=== PATIENT | male | born 1950 | race Caucasian/White ===

== ENCOUNTER 2020-02-09 05:16 | Inpatient (IN) | payer MEDICARE ==
[2020-02-02 14:55] LABS: ABG BASE EXCESS 0.7 mmol/L (-2.0-3.0); ABG HCO3 24.7 mmol/L (22.0-26.0); ABG OXYGEN SATURATION 96.3 % (95-98); ABG PO2 (T) 82.1 mmHg (83-108); ALLEN'S TEST POSITIVE; FCOHb 2.3 % (0.5-1.5); FMetHb 0.3 % (0.3-1.12); FO2Hb 93.8 % (94-100); TOTAL HEMOGLOBIN 15.3 G/dl (14.0-17.9)
[2020-02-02 15:22] LABS: BASOPHILS # (AUTO) 0.1 X10'3 (0-0.2); BASOPHILS % (AUTO) 0.8 % (0-1); EOSINOPHILS # (AUTO) 0.4 X10'3 (0-0.9); EOSINOPHILS % (AUTO) 4.3 % (0-6); LYMPHOCYTES # (AUTO) 2.4 X10'3 (1.1-4.8); LYMPHOCYTES % (AUTO) 28.7 % (21-51); MEAN CORPUSCULAR HEMOGLOBIN 28.2 PG (27.0-31.0); MEAN CORPUSCULAR VOLUME 85.4 FL (78-98); MEAN PLATELET VOLUME 6.7 FL (7.4-10.4); MONOCYTES # (AUTO) 0.6 X10'3 (0-0.9); MONOCYTES % (AUTO) 6.7 % (2-12); NEUTROPHILS # (AUTO) 4.9 X10'3 (1.8-7.7); NEUTROPHILS % (AUTO) 59.5 % (42-75); PRE OP HEMATOCRIT 45.5 % (42.0-52.0); PRE OP PLATELET COUNT 258 X10'3 (140-440); RED BLOOD COUNT 5.33 X10'6 (4.70-6.10); RED CELL DISTRIBUTION WIDTH 15.2 % (11.5-14.5)
[2020-02-02 15:35] LABS: PRE OP PROTIME 9.9 SECONDS (9.0-12.0)
[2020-02-02 15:37] LABS: ALBUMIN/GLOBULIN RATIO 1.1 (1.1-1.5); ALKALINE PHOSPHATASE 60 IU/L (46-116); BLOOD UREA NITROGEN 14 MG/DL (7-18); BUN/CREATININE RATIO 15.2 (5.4-32.0); CALCIUM 9.3 MG/DL (8.5-10.1); CHLORIDE 104 MMOL/L (99-107); CREATININE 0.92 MG/DL (0.60-1.10); PRE OP ALT 20 U/L (30-65); PRE OP ANION GAP 7 (8-16); PRE OP AST 18 U/L (10-37); PRE OP BILIRUB, TOTAL 0.9 MG/DL (0.0-1.0); PRE OP GLUCOSE 91 MG/DL (70-104); PRE OP POTASSIUM 3.8 MMOL/L (3.4-5.1); PRE OP SODIUM 141 MMOL/L (135-145); TOTAL CARBON DIOXIDE 29.8 MMOL/L (24-32); TOTAL PROTEIN 7.6 G/DL (6.4-8.2); eGFR 82 ML/MIN
[2020-02-02 15:38] LABS: HEMOGLOBIN A1C 5.9 % (4.5-6.2)
[2020-02-02 16:13] LABS: CLARITY,URINE CLEAR (Clear); COLOR,URINE YELLOW (Yellow); GLUCOSE, URINE NEGATIVE (Neg); KETONES,URINE NEGATIVE (Neg); LEUKOCYTE ESTERASE ,URINE NEGATIVE (Neg); NITRITES, URINE NEGATIVE (Neg); OCCULT BLOOD,URINE NEGATIVE (Neg); PROTEIN,URINE NEGATIVE (Neg)
[2020-02-02 16:23] LABS: UA COLLECTION TYPE CLN CATCH MIDSTREAM
[~2020-02-09] VITALS: Ht 172.7 cm; Wt 99.9 kg
[2020-02-09] VITALS (20 sets, daily range): BP systolic 67–128; BP diastolic 39–88
[~2020-02-09 05:16] MED LIST: ASPI-611 PO; FLO0.4C PO; Insulin Reg/NS 100units/100mL 100 ML IV SCH; LISI-604 PO; MESSAGE TO PHARMACY PO ONE; albuterol 2.5 MG/3 ML nebule NEB PRN; ceFAZolin 1000mg inj ONE; dextrose 50%-water 50ml dispensing syringe IV PRN; dextrose ORAL solution 15 GM/59 ML bottle PO PRN; glucagon, human recombinant 1mg kit SUBCUT PRN; insulin Lispro (HumaLOG) vial - multi-dose SQ SCH; insulin glargine (Lantus) pen - multi-dose SQ SCH; ringers solution, lacted 1,000 ML IV SCH
[2020-02-09] MEDS ORDERED: cefazolin/dext.iso 2gm/50ml 50 ML IV ONE (05:30)
[2020-02-09] MEDS ORDERED: famotidine 20mg tablet PO ONE (05:30)
[2020-02-09] MEDS ORDERED: LORazepam 2 mg/ml vial IV ONE (05:30)
[2020-02-09] MEDS ORDERED: metoprolol tartrate 12.5mg (1/2 tablet) PO ONE (05:30)
[2020-02-09] MEDS ORDERED: mupirocin 2% nasal ointment 1gm UD NS ONE (05:30)
[2020-02-09] MEDS ORDERED: vancomycin 1,500 MG in NS 500ml IV soln IV ONE (05:30)
[2020-02-09] MEDS ORDERED: gabapentin 400mg capsule PO ONE (05:30)
[2020-02-09] MEDS ORDERED: LIDOcaine 1% (10mg/ml) 2ml vial ONE ×2 (05:44→05:49)
[2020-02-09] MEDS ORDERED: heparin 10,000 units/1 ML INJ ONE (06:00)
[2020-02-09] MEDS ORDERED: methylPREDNISolone sod. succ. 500mg inj ONE (06:00)
[2020-02-09] MEDS ORDERED: magnesium sulf 1 GM/2 ML ONE (06:00)
[2020-02-09] MEDS ORDERED: sodium bicarbonate (8.4%) 1 mEq/ml syringe ONE ×2 (06:00→16:25)
[2020-02-09] MEDS ORDERED: calcium chloride 100 MG/1 ML inj IV ONE ×2 (06:00→17:21)
[2020-02-09] MEDS ORDERED: albumin (human) 25% 100 ML IV solution IV ONE (06:00)
[2020-02-09] MEDS ORDERED: potassium Cl 2 mEq/ml inj IV ONE (06:00)
[2020-02-09] MEDS ORDERED: neostigmine methylsulfate 1 MG/ML 10ml vial ONE (06:00)
[2020-02-09] MEDS ORDERED: LIDOcaine 2% (20 mg/ml) 5ml cardiac syringe ONE (06:00)
[2020-02-09] MEDS ORDERED: aminocaproic acid 250 MG/1 ML inj. ONE ×2 (06:00→09:32)
[2020-02-09] MEDS ORDERED: heparin 1,000 units/ml 10ml inj ONE (06:00)
[2020-02-09] MEDS: insulin Lispro (HumaLOG) vial - multi-dose SQ SCH ×3 (07:00→12:32)
[2020-02-09] MEDS ORDERED: NORepinephrine 8 MG in NS 250 ML BAG (32 mcg/ml) IV ONE ×2 (09:32→16:25)
[2020-02-09] MEDS ORDERED: protamine sulf. 10mg/ml inj. IV ONE (09:32)
[2020-02-09] MEDS ORDERED: isoflurane 100ml inhalation liquid IH ONE ×2 (09:32→16:25)
[2020-02-09] MEDS ORDERED: nitroGLYCERIN in D5W 50mg/250ml (Tridil) infusion IV ONE (09:32)
[2020-02-09] MEDS ORDERED: SUFENTANIL CITRATE 50 MCG/ML 2ml ampule IV ONE (09:43)
[2020-02-09] MEDS ORDERED: LORazepam 2 mg/ml vial ONE (09:47)
[2020-02-09] MEDS ORDERED: LIDOcaine 2% (20mg/ml) 5ml vial ONE (09:50)
[2020-02-09] MEDS ORDERED: propofol inj 20 ML IV ONE (09:50)
[2020-02-09] MEDS ORDERED: rocuronium 10mg/ml inj IV ONE (09:50)
[2020-02-09] MEDS ORDERED: pancuronium br 1mg/ml inj IV ONE (09:50)
[2020-02-09 10:40] LABS: ABG BASE EXCESS 0.8 mmol/L (-2.0-3.0); ABG HCO3 24.7 mmol/L (22.0-26.0); ABG OXYGEN SATURATION 96.8 % (95-98); ABG PCO2 36.8 mmHg (35.0-45.0); ABG PO2 85.5 mmHg (60.0-100.0); CL (ABG) 109 mmol/L (99-107); FMetHb 0.1 % (0.3-1.12); FO2Hb 94.8 % (94-100); GLUCOSE (ABG) 91 mg/dl (70-104); IONIZED CA (ABG) 1.14 mmol/L (1.03-1.32); K (ABG) 3.7 mmol/L (3.3-5.1); TOTAL HEMOGLOBIN 12.8 G/dl (14.0-17.9)
[2020-02-09 11:31] LABS: ABG BASE EXCESS -0.4 mmol/L (-2.0-3.0); ABG HCO3 24.3 mmol/L (22.0-26.0); ABG OXYGEN SATURATION 99.1 % (95-98); ABG PCO2 39.9 mmHg (35.0-45.0); ABG PO2 250.1 mmHg (60.0-100.0); CL (ABG) 107 mmol/L (99-107); FCOHb 1.3 % (0.5-1.5); FO2Hb 97.8 % (94-100); GLUCOSE (ABG) 107 mg/dl (70-104); IONIZED CA (ABG) 1.08 mmol/L (1.03-1.32); K (ABG) 4.6 mmol/L (3.3-5.1); TOTAL HEMOGLOBIN 10.3 G/dl (14.0-17.9)
[2020-02-09 11:56] LABS: ABG BASE EXCESS VENOUS -1.6 mmol/L; ABG HCO3 VENOUS 24.3 mmol/L; ABG PCO2 VENOUS 46.3 mmHg; CL (ABG) 107 mmol/L (99-107); FCOHb VENOUS 1.7 %; FHHb VENOUS 12.4 %; FMetHb VENOUS 0.3 %; FO2Hb VENOUS 85.6 %; GLUCOSE (ABG) 133 mg/dl (70-104); IONIZED CA (ABG) 1.11 mmol/L (1.03-1.32); K (ABG) 4.4 mmol/L (3.3-5.1); TOTAL HEMOGLOBIN 10.7 G/dl (14.0-17.9)
[2020-02-09 12:46] LABS: ABG BASE EXCESS -1.3 mmol/L (-2.0-3.0); ABG HCO3 23.6 mmol/L (22.0-26.0); ABG OXYGEN SATURATION 99.2 % (95-98); ABG PCO2 40.5 mmHg (35.0-45.0); ABG PO2 397.9 mmHg (60.0-100.0); CL (ABG) 103 mmol/L (99-107); FCOHb 1.1 % (0.5-1.5); FMetHb 0.3 % (0.3-1.12); FO2Hb 97.8 % (94-100); GLUCOSE (ABG) 146 mg/dl (70-104); IONIZED CA (ABG) 1.37 mmol/L (1.03-1.32); K (ABG) 4.4 mmol/L (3.3-5.1); TOTAL HEMOGLOBIN 9.9 G/dl (14.0-17.9)
[2020-02-09] MEDS ORDERED: desmopressin 4 MCG/1 ML amp IV ONE (12:55)
[2020-02-09 13:26] LABS: ABG BASE EXCESS -1.3 mmol/L (-2.0-3.0); ABG HCO3 23.2 mmol/L (22.0-26.0); ABG OXYGEN SATURATION 98.5 % (95-98); ABG PCO2 38.3 mmHg (35.0-45.0); ABG PO2 170.1 mmHg (60.0-100.0); CL (ABG) 108 mmol/L (99-107); FCOHb 0.7 % (0.5-1.5); FMetHb 0.3 % (0.3-1.12); FO2Hb 97.5 % (94-100); GLUCOSE (ABG) 139 mg/dl (70-104); IONIZED CA (ABG) 1.22 mmol/L (1.03-1.32); TOTAL HEMOGLOBIN 10.2 G/dl (14.0-17.9)
[2020-02-09] MEDS ORDERED: niCARDipine-NS 40mg/200ml IVPB 200 ML IV PRN (14:19)
[2020-02-09] MEDS ORDERED: Insulin Reg/NS 100units/100mL 100 ML IV SCH (14:19)
[2020-02-09] MEDS ORDERED: DOPamine 400mg/D5W 250ml 250 ML IV PRN (14:19)
[2020-02-09] MEDS ORDERED: nitroGLYCERIN-Tridil 50MG/D5W 250 ML IV PRN (14:19)
[2020-02-09] MEDS ORDERED: magnesium citrate 296ml oral solution PO PRN (14:20)
[2020-02-09] MEDS ORDERED: dextrose 50%-water 50ml dispensing syringe IV PRN (14:20)
[2020-02-09] MEDS ORDERED: pantoprazole 40 MG vial IV ONE (14:20)
[2020-02-09] MEDS ORDERED: magnesium 4gm in 100ml NS 100 ML IV PRN (14:20)
[2020-02-09] MEDS ORDERED: metoclopramide 5 mg/ml inj IV PRN (14:20)
[2020-02-09] MEDS ORDERED: magnesium hydroxide 30ml (MOM) UD suspension PO PRN (14:20)
[2020-02-09] MEDS ORDERED: normal saline 250ml IV soln 250 ML IV PRN (14:20)
[2020-02-09] MEDS ORDERED: sodium phosphate inj. 30 MMOL in dextrose 5%-water 250 ML IV PRN (14:20)
[2020-02-09] MEDS ORDERED: Neutra Phos packet PO PRN (14:20)
[2020-02-09] MEDS ORDERED: insulin glargine (Lantus) pen - multi-dose SQ PRN (14:20)
[2020-02-09] MEDS ORDERED: potassium Cl 20 mEq SR tablet PO PRN (14:20)
[2020-02-09] MEDS ORDERED: bisacodyl 10mg suppository rectal RC PRN (14:20)
[2020-02-09] MEDS ORDERED: ondansetron/PF 4mg/2ml inj IV PRN (14:20)
[2020-02-09] MEDS ORDERED: sodium phosphate inj. 15 MMOL in dextrose 5%-water 250 ML IV PRN (14:20)
[2020-02-09] MEDS ORDERED: acetaminophen 325mg tablet PO PRN ×2 (14:20)
[2020-02-09] MEDS ORDERED: mineral oil 133ml enema RC PRN (14:20)
[2020-02-09] MEDS ORDERED: albumin (Human) 5% 250ml 250 ML IV ONE ×2 (14:21→14:24)
[2020-02-09] MEDS: Insulin Reg/NS 100units/100mL 100 ML IV SCH (14:30)
--- NOTE | 2020-02-09 14:30 | NUR ---
Received to room , accompanied by MDs and surgical crew. Placed on ventilator, to desk monitor, arterial line and PA line pressure monitored. Chest tubes to suction at 20 cm. Ramirez cath to gravity drainage. Dressings are dry and intact. See assessment record. All vasoactive drugs are infusing via central line. Levo .1, insulin 2. CI above 2, hypotensive, tachycardic, and oozy from CT. MD aware; orders received
--- NOTE | 2020-02-09 14:54 | NUR ---
Nutrition consult: Pt with severe aortic stenosis with functional bicuspid valve and ascending aortic aneurysm per H&P, s/p aortic root replacement today. Pt would benefit from post cardiac surgery nutrition therapy education once stable. Will continue to follow. Addendum: 02/09/20 at [address] Amended: Links added.
[2020-02-09 15:00] LABS: ABG BASE EXCESS -3.6 mmol/L (-2.0-3.0); ABG HCO3 22.1 mmol/L (22.0-26.0); ABG OXYGEN SATURATION 98.7 % (95-98); ABG PCO2 (T) 42.5 mmHg (35.0-45.0); ABG PO2 (T) 201.6 mmHg (83-108); FCOHb 0.3 % (0.5-1.5); FMetHb 0.2 % (0.3-1.12); FO2Hb 98.2 % (94-100); PEEP 10 cm H2O; RESPIRATORY RATE 14 b/min; TIDAL VOLUME 650 mL; TOTAL HEMOGLOBIN 11.2 G/dl (14.0-17.9)
[2020-02-09 15:03] LABS: BASOPHILS # (AUTO) 0.1 X10'3 (0-0.2); BASOPHILS % (AUTO) 0.2 % (0-1); EOSINOPHILS # (AUTO) 0.1 X10'3 (0-0.9); EOSINOPHILS % (AUTO) 0.5 % (0-6); HEMATOCRIT 31.7 % (42.0-52.0); HEMOGLOBIN 10.6 g/dl (14.0-17.9); LYMPHOCYTES # (AUTO) 2.1 X10'3 (1.1-4.8); MEAN CORPUSCULAR HEMOGLOBIN 28.5 PG (27.0-31.0); MEAN CORPUSCULAR HGB CONC 33.4 g/dL (33.0-36.5); MEAN CORPUSCULAR VOLUME 85.3 FL (78-98); MONOCYTES # (AUTO) 0.9 X10'3 (0-0.9); MONOCYTES % (AUTO) 4.3 % (2-12); NEUTROPHILS # (AUTO) 17.8 X10'3 (1.8-7.7); PLATELET COUNT 159 X10'3 (140-440); RED BLOOD COUNT 3.71 X10'6 (4.70-6.10); RED CELL DISTRIBUTION WIDTH 14.7 % (11.5-14.5); WHITE BLOOD COUNT 20.9 X10'3 (4.5-11.0)
[2020-02-09 15:06] LABS: ACTIVATED CLOTTING TIME 112 SEC (101-148)
[2020-02-09] MEDS: ipratropium/albuterol 3ml nebule NEB SCH ×3 (15:12→23:12)
[2020-02-09 15:14] LABS: PARTIAL THROMBOPLASTIN TIME 29 SECONDS (22-32)
[2020-02-09 15:15] LABS: ALANINE AMINOTRANSFERASE 14 U/L (12-78); ALBUMIN 3.1 G/DL (3.4-5.0); ALBUMIN/GLOBULIN RATIO 1.7 (1.1-1.5); ALKALINE PHOSPHATASE 32 IU/L (46-116); ANION GAP 10 (8-16); ASPARTATE AMINO TRANSFERASE 25 U/L (10-37); BILIRUBIN,TOTAL 0.9 MG/DL (0.1-1.0); BLOOD UREA NITROGEN 11 MG/DL (7-18); CALCIUM 7.5 MG/DL (8.5-10.1); CHLORIDE 114 MMOL/L (99-107); GLUCOSE 199 MG/DL (70-104); MAGNESIUM 3.1 MG/DL (1.5-2.4); PHOSPHORUS 2.4 MG/DL (2.3-4.5); SODIUM 148 MMOL/L (135-145); TOTAL CARBON DIOXIDE 23.6 MMOL/L (24-32); TOTAL PROTEIN 4.9 G/DL (6.4-8.2); eGFR 74 ML/MIN
[2020-02-09 15:16] LABS: POTASSIUM 3.6 MMOL/L (3.5-5.1)
[2020-02-09] MEDS ORDERED: HUMAN PROTHROMBIN COMPLX(PCC) 500 UNIT KIT IV ONE (15:20)
[2020-02-09] MEDS: albumin (Human) 5% 250ml 250 ML IV PRN ×2 (15:23→15:37)
[2020-02-09 15:26] LABS: ACT @ 1.70 U 310 SEC (193-297); ACT @ 2.84 U 462 SEC (260-420); BASELINE ACT 147 SEC (101-148)
[2020-02-09] MEDS: ceFAZolin 1GM/D5W- ADD-VANTAGE 50 ML IV SCH (16:00)
[2020-02-09] MEDS ORDERED: ceFAZolin 1000mg inj ONE ×2 (16:11→17:35)
--- NOTE | 2020-02-09 16:15 | NUR ---
Patient back to OR with a unit of blood hanging. Levo at .4 HR 130 SR. 1400 in atrium. albumin given x3, along with cryo and plt. other med orders received and given with MD at bedside but bleeding did not slow down. notified
[2020-02-09] MEDS ORDERED: MIDAZolam 5mg/5ml vial ONE (16:23)
[2020-02-09] MEDS ORDERED: fentaNYL /PF 50mcg/ml 5ml ampule ONE (16:23)
[2020-02-09 16:46] LABS: ABG BASE EXCESS -8.4 mmol/L (-2.0-3.0); ABG HCO3 18.4 mmol/L (22.0-26.0); ABG OXYGEN SATURATION 95.8 % (95-98); ABG PCO2 43.6 mmHg (35.0-45.0); ABG PO2 95.1 mmHg (60.0-100.0); CL (ABG) 111 mmol/L (99-107); FCOHb 0.4 % (0.5-1.5); FMetHb 0.5 % (0.3-1.12); FO2Hb 94.9 % (94-100); GLUCOSE (ABG) 264 mg/dl (70-104); IONIZED CA (ABG) 1.03 mmol/L (1.03-1.32); TOTAL HEMOGLOBIN 8.6 G/dl (14.0-17.9)
[2020-02-09] MEDS ORDERED: gelatin sponge, absorbable (Gelfoam 100) sponge TP ONE (16:50)
[2020-02-09] MEDS ORDERED: Thrombin (Bovine) 5,000 unit vial TP ONE ×2 (16:50→16:54)
[2020-02-09] MEDS ORDERED: gelatin sponge, absorbable (Gelfoam-100 compressed) sponge TP ONE (16:50)
[2020-02-09] MEDS ORDERED: sodium bicarbonate (8.4%) inj. 1 MEQ/ML ML ONE ×2 (17:14)
[2020-02-09 17:45] LABS: ABG BASE EXCESS -1.9 mmol/L (-2.0-3.0); ABG HCO3 23.5 mmol/L (22.0-26.0); ABG OXYGEN SATURATION 98.4 % (95-98); ABG PCO2 42.7 mmHg (35.0-45.0); ABG PO2 160.6 mmHg (60.0-100.0); CL (ABG) 113 mmol/L (99-107); FCOHb 0.3 % (0.5-1.5); FMetHb 0.4 % (0.3-1.12); FO2Hb 97.7 % (94-100); GLUCOSE (ABG) 189 mg/dl (70-104); IONIZED CA (ABG) 1.12 mmol/L (1.03-1.32); K (ABG) 3.6 mmol/L (3.3-5.1); TOTAL HEMOGLOBIN 9.6 G/dl (14.0-17.9)
[2020-02-09] MEDS ORDERED: morphine 4 MG/ML inj SYRINge ONE (17:57)
[2020-02-09 19:31] LABS: BASOPHILS % (AUTO) 0.1 % (0-1); EOSINOPHILS % (AUTO) 0 % (0-6); HEMATOCRIT 24.9 % (42.0-52.0); HEMOGLOBIN 8.3 g/dl (14.0-17.9); LYMPHOCYTES # (AUTO) 1.1 X10'3 (1.1-4.8); LYMPHOCYTES % (AUTO) 5.9 % (21-51); MEAN CORPUSCULAR HEMOGLOBIN 28.3 PG (27.0-31.0); MEAN CORPUSCULAR HGB CONC 33.2 g/dL (33.0-36.5); MEAN CORPUSCULAR VOLUME 85.2 FL (78-98); MEAN PLATELET VOLUME 6.9 FL (7.4-10.4); MONOCYTES # (AUTO) 1.1 X10'3 (0-0.9); MONOCYTES % (AUTO) 5.8 % (2-12); NEUTROPHILS # (AUTO) 16.3 X10'3 (1.8-7.7); NEUTROPHILS % (AUTO) 88.2 % (42-75); PLATELET COUNT 112 X10'3 (140-440); RED BLOOD COUNT 2.92 X10'6 (4.70-6.10); RED CELL DISTRIBUTION WIDTH 14.5 % (11.5-14.5); WHITE BLOOD COUNT 18.5 X10'3 (4.5-11.0)
[2020-02-09 19:41] LABS: PARTIAL THROMBOPLASTIN TIME 50 SECONDS (22-32)
[2020-02-09 19:44] LABS: ANION GAP 8 (8-16); BLOOD UREA NITROGEN 12 MG/DL (7-18); BUN/CREATININE RATIO 10.1 (5.4-32.0); CALCIUM 7.9 MG/DL (8.5-10.1); CHLORIDE 120 MMOL/L (99-107); CREATININE 1.19 MG/DL (0.60-1.10); GLUCOSE 141 MG/DL (70-104); MAGNESIUM 2.4 MG/DL (1.5-2.4); PHOSPHORUS 2.5 MG/DL (2.3-4.5); POTASSIUM 3.8 MMOL/L (3.5-5.1); SODIUM 153 MMOL/L (135-145); TOTAL CARBON DIOXIDE 24.7 MMOL/L (24-32); eGFR 61 ML/MIN
[2020-02-09] MEDS: mupirocin 2% nasal ointment 1gm UD NS SCH (20:00)
[2020-02-09] MEDS: sennosides/docusate sodium tablet PO SCH (20:00)
[2020-02-09] MEDS: NORepinephrine 8mg/ 250ml NS 250 ML IV SCH (20:08)
[2020-02-09] MEDS: vancomycin/NS 1 GM ADD-VANTAGE 250 ML IV SCH (20:12)
[2020-02-09] MEDS: sodium chloride 0.45% 1,000 ML IV SCH (20:14)
[2020-02-09] MEDS: potassium Cl 20mEq/100mL bag 100 ML IV PRN ×2 (20:17→21:33)
[2020-02-09 20:50] LABS: ABG BASE EXCESS -2.9 mmol/L (-2.0-3.0); ABG HCO3 21.9 mmol/L (22.0-26.0); ABG OXYGEN SATURATION 97.5 % (95-98); ABG PCO2 (T) 39.1 mmHg (35.0-45.0); ABG PO2 (T) 123.5 mmHg (83-108); FCOHb 0.2 % (0.5-1.5); FMetHb 0.2 % (0.3-1.12); FO2Hb 97.1 % (94-100); PATIENT TEMPERATURE 37.7; PEEP 7 cm H2O; RESPIRATORY RATE 14 b/min; TIDAL VOLUME 650 mL; TOTAL HEMOGLOBIN 9.2 G/dl (14.0-17.9)
[2020-02-09] MEDS: gabapentin 300mg capsule PO SCH (21:00)
[2020-02-09 23:05] LABS: BASOPHILS % (AUTO) 0.1 % (0-1); EOSINOPHILS % (AUTO) 0 % (0-6); HEMATOCRIT 24.9 % (42.0-52.0); HEMOGLOBIN 8.3 g/dl (14.0-17.9); LYMPHOCYTES # (AUTO) 0.8 X10'3 (1.1-4.8); LYMPHOCYTES % (AUTO) 4.8 % (21-51); MEAN CORPUSCULAR HEMOGLOBIN 28.1 PG (27.0-31.0); MEAN CORPUSCULAR HGB CONC 33.3 g/dL (33.0-36.5); MEAN CORPUSCULAR VOLUME 84.4 FL (78-98); MEAN PLATELET VOLUME 7.3 FL (7.4-10.4); MONOCYTES # (AUTO) 0.6 X10'3 (0-0.9); MONOCYTES % (AUTO) 3.8 % (2-12); NEUTROPHILS # (AUTO) 14.5 X10'3 (1.8-7.7); NEUTROPHILS % (AUTO) 91.3 % (42-75); PLATELET COUNT 115 X10'3 (140-440); RED BLOOD COUNT 2.95 X10'6 (4.70-6.10); RED CELL DISTRIBUTION WIDTH 14.4 % (11.5-14.5); WHITE BLOOD COUNT 15.9 X10'3 (4.5-11.0)
[2020-02-09] MEDS: morphine 4 MG/ML inj SYRINge IV PRN (23:06)
[2020-02-09 23:16] LABS: ALBUMIN 3.3 G/DL (3.4-5.0); ANION GAP 6 (8-16); BLOOD UREA NITROGEN 13 MG/DL (7-18); BUN/CREATININE RATIO 10.8 (5.4-32.0); CALCIUM 8.1 MG/DL (8.5-10.1); CHLORIDE 119 MMOL/L (99-107); GLUCOSE 136 MG/DL (70-104); MAGNESIUM 2.5 MG/DL (1.5-2.4); PHOSPHORUS 1.8 MG/DL (2.3-4.5); POTASSIUM 5.1 MMOL/L (3.5-5.1); SODIUM 150 MMOL/L (135-145); TOTAL CARBON DIOXIDE 25.4 MMOL/L (24-32); eGFR 60 ML/MIN
[2020-02-10] VITALS (28 sets, daily range): BP systolic 98–128; BP diastolic 39–53
[2020-02-10] MEDS: ceFAZolin 1GM/D5W- ADD-VANTAGE 50 ML IV SCH ×3 (01:03→17:11)
[2020-02-10] MEDS: Insulin Reg/NS 100units/100mL 100 ML IV SCH (01:10)
[2020-02-10 01:21] LABS: ABG BASE EXCESS -3.4 mmol/L (-2.0-3.0); ABG HCO3 21.5 mmol/L (22.0-26.0); ABG OXYGEN SATURATION 96.8 % (95-98); ABG PCO2 (T) 39.6 mmHg (35.0-45.0); ABG PO2 (T) 105.4 mmHg (83-108); FCOHb 0.2 % (0.5-1.5); FMetHb 0.2 % (0.3-1.12); FO2Hb 96.4 % (94-100); PATIENT TEMPERATURE 38.1; PEEP 5 cm H2O; TOTAL HEMOGLOBIN 8.7 G/dl (14.0-17.9)
[2020-02-10] MEDS: ipratropium/albuterol 3ml nebule NEB SCH ×2 (03:18→07:29)
[2020-02-10 04:33] LABS: BASOPHILS % (AUTO) 0.1 % (0-1); EOSINOPHILS % (AUTO) 0 % (0-6); HEMATOCRIT 23.5 % (42.0-52.0); HEMOGLOBIN 7.8 g/dl (14.0-17.9); LYMPHOCYTES % (AUTO) 6.4 % (21-51); MEAN CORPUSCULAR HEMOGLOBIN 28.2 PG (27.0-31.0); MEAN CORPUSCULAR HGB CONC 33.4 g/dL (33.0-36.5); MEAN CORPUSCULAR VOLUME 84.3 FL (78-98); MEAN PLATELET VOLUME 7.4 FL (7.4-10.4); MONOCYTES # (AUTO) 1.1 X10'3 (0-0.9); NEUTROPHILS % (AUTO) 86.5 % (42-75); PLATELET COUNT 110 X10'3 (140-440); RED BLOOD COUNT 2.78 X10'6 (4.70-6.10); RED CELL DISTRIBUTION WIDTH 14.5 % (11.5-14.5)
[2020-02-10] MEDS: HYDROcodone/acetaminophen 10/325mg tab PO PRN ×5 (04:34→20:59)
[2020-02-10 04:46] LABS: PARTIAL THROMBOPLASTIN TIME 28 SECONDS (22-32)
[2020-02-10 04:54] LABS: ALANINE AMINOTRANSFERASE 13 U/L (12-78); ALBUMIN 3.2 G/DL (3.4-5.0); ALBUMIN/GLOBULIN RATIO 1.9 (1.1-1.5); ALKALINE PHOSPHATASE 22 IU/L (46-116); ANION GAP 10 (8-16); ASPARTATE AMINO TRANSFERASE 41 U/L (10-37); BILIRUBIN,TOTAL 0.6 MG/DL (0.1-1.0); BLOOD UREA NITROGEN 17 MG/DL (7-18); BUN/CREATININE RATIO 12.7 (5.4-32.0); CHLORIDE 117 MMOL/L (99-107); CREATININE 1.34 MG/DL (0.60-1.10); GLUCOSE 150 MG/DL (70-104); MAGNESIUM 2.3 MG/DL (1.5-2.4); PHOSPHORUS 3.6 MG/DL (2.3-4.5); POTASSIUM 4.8 MMOL/L (3.5-5.1); SODIUM 150 MMOL/L (135-145); TOTAL CARBON DIOXIDE 22.8 MMOL/L (24-32); TOTAL PROTEIN 4.9 G/DL (6.4-8.2); eGFR 53 ML/MIN
[2020-02-10 05:01] LABS: CALCIUM 8.3 MG/DL (8.5-10.1)
[2020-02-10] MEDS: sennosides/docusate sodium tablet PO SCH ×2 (08:33→20:59)
[2020-02-10] MEDS: metoprolol tartrate 12.5mg (1/2 tablet) PO SCH ×2 (08:33→20:58)
[2020-02-10] MEDS: gabapentin 300mg capsule PO SCH ×3 (08:34→20:57)
[2020-02-10] MEDS: aspirin 325mg tablet, delayed-release (Ecotrin) PO SCH (08:34)
[2020-02-10] MEDS: tamsulosin 0.4mg capsule PO SCH (08:34)
[2020-02-10] MEDS: mupirocin 2% nasal ointment 1gm UD NS SCH ×2 (08:35→20:57)
[2020-02-10] MEDS: magnesium 2GM in 50ml NS 50 ML IV PRN (08:36)
[2020-02-10] MEDS: vancomycin/NS 1 GM ADD-VANTAGE 250 ML IV SCH ×2 (09:31→20:56)
--- NOTE | 2020-02-10 10:49 | NUR ---
Wound care POC. Arrived at bedside due to low brigitte score. Pt is awake and alert and getting ready to eat breakfast. Spoke with primary nurse and pt had surgery on 02/08 and post op assessment scored him as a low brigitte. Pt mobile and already up walking with no skin issues noted. Pt not low brigitte and will offload himself without aggressive intervention.
[2020-02-10] MEDS ORDERED: dextrose ORAL solution 15 GM/59 ML bottle PO PRN ×2 (10:50)
[2020-02-10] MEDS ORDERED: insulin glargine (Lantus) pen - multi-dose SQ SCH ×2 (10:50→15:15)
[2020-02-10] MEDS ORDERED: glucagon, human recombinant 1mg kit SUBCUT PRN (10:50)
[2020-02-10] MEDS ORDERED: dextrose 50%-water 50ml dispensing syringe IV PRN ×2 (10:50)
[2020-02-10] MEDS ORDERED: MESSAGE TO PHARMACY PO ONE (10:50)
[2020-02-10] MEDS: insulin Lispro (HumaLOG) vial - multi-dose SQ SCH ×2 (13:02→19:19)
--- NOTE | 2020-02-10 13:21 | NUR ---
Tico 12: sternum surgical wound present. Eating PO diet since this afternoon. Will follow. Addendum: 02/10/20 at [address] Amended: Links added.
[2020-02-10] MEDS: NORepinephrine 8mg/ 250ml NS 250 ML IV SCH (22:58)
[2020-02-10] MEDS: morphine 4 MG/ML inj SYRINge IV PRN (23:46)
[2020-02-11] VITALS (25 sets, daily range): BP systolic 94–127; BP diastolic 40–70
[2020-02-11] MEDS: ceFAZolin 1GM/D5W- ADD-VANTAGE 50 ML IV SCH (00:11)
[2020-02-11 03:13] LABS: BASOPHILS % (AUTO) 0.1 % (0-1); EOSINOPHILS % (AUTO) 0 % (0-6); LYMPHOCYTES # (AUTO) 1.3 X10'3 (1.1-4.8); LYMPHOCYTES % (AUTO) 7.6 % (21-51); MEAN CORPUSCULAR HEMOGLOBIN 27.9 PG (27.0-31.0); MEAN CORPUSCULAR HGB CONC 33.2 g/dL (33.0-36.5); MEAN CORPUSCULAR VOLUME 84.1 FL (78-98); MONOCYTES # (AUTO) 1.3 X10'3 (0-0.9); MONOCYTES % (AUTO) 7.5 % (2-12); NEUTROPHILS # (AUTO) 14.5 X10'3 (1.8-7.7); NEUTROPHILS % (AUTO) 84.8 % (42-75); PLATELET COUNT 72 X10'3 (140-440); RED BLOOD COUNT 2.43 X10'6 (4.70-6.10); RED CELL DISTRIBUTION WIDTH 16.2 % (11.5-14.5); WHITE BLOOD COUNT 17.1 X10'3 (4.5-11.0)
[2020-02-11 03:21] LABS: HEMATOCRIT 20.5 % (42.0-52.0); HEMOGLOBIN 6.8 g/dl (14.0-17.9)
[2020-02-11 03:32] LABS: ALBUMIN 2.8 G/DL (3.4-5.0); ANION GAP 5 (8-16); BLOOD UREA NITROGEN 23 MG/DL (7-18); BUN/CREATININE RATIO 20.7 (5.4-32.0); CALCIUM 8.1 MG/DL (8.5-10.1); CHLORIDE 110 MMOL/L (99-107); CREATININE 1.11 MG/DL (0.60-1.10); GLUCOSE 159 MG/DL (70-104); MAGNESIUM 2.3 MG/DL (1.5-2.4); PHOSPHORUS 2.9 MG/DL (2.3-4.5); POTASSIUM 4.7 MMOL/L (3.5-5.1); SODIUM 141 MMOL/L (135-145); TOTAL CARBON DIOXIDE 26.3 MMOL/L (24-32); eGFR 66 ML/MIN
[2020-02-11] MEDS ORDERED: amiodarone 150mg/dext, iso-os 100 ML IV ONE ×2 (03:45→03:54)
[2020-02-11] MEDS: amiodarone/D5 360MG/200ML BAG 200 ML IV SCH ×4 (04:39→22:25)
[2020-02-11] MEDS: morphine 4 MG/ML inj SYRINge IV PRN ×2 (04:40→07:23)
--- NOTE | 2020-02-11 06:36 | NUR ---
Problems reprioritized. Patient report given, questions answered & plan of care reviewed with JORGE ALBERTO COSTELLO.
[2020-02-11] MEDS: magnesium 2GM in 50ml NS 50 ML IV PRN (07:21)
[2020-02-11] MEDS: furosemide 40mg/4ml inj IV SCH ×2 (07:21→20:09)
[2020-02-11] MEDS: mupirocin 2% nasal ointment 1gm UD NS SCH (07:21)
[2020-02-11] MEDS: gabapentin 300mg capsule PO SCH ×2 (07:22→13:14)
[2020-02-11] MEDS: pantoprazole 40mg Tablet.DR PO SCH (07:22)
[2020-02-11] MEDS: metoprolol tartrate 12.5mg (1/2 tablet) PO SCH ×2 (07:22→20:08)
[2020-02-11] MEDS: sennosides/docusate sodium tablet PO SCH ×2 (07:23→20:08)
[2020-02-11] MEDS: aspirin 325mg tablet, delayed-release (Ecotrin) PO SCH (07:23)
[2020-02-11] MEDS: tamsulosin 0.4mg capsule PO SCH (07:23)
[2020-02-11] MEDS: aspirin 81mg tablet.DR PO SCH (08:00)
[2020-02-11] MEDS: insulin Lispro (HumaLOG) vial - multi-dose SQ SCH ×3 (08:55→19:23)
[2020-02-11] MEDS ORDERED: insulin glargine (Lantus) pen - multi-dose SQ SCH (11:00)
[2020-02-11] MEDS: insulin glargine (Lantus) pen - multi-dose SQ SCH (11:23)
[2020-02-11] MEDS: HYDROcodone/acetaminophen 10/325mg tab PO PRN ×3 (11:42→17:45)
[2020-02-11 12:48] LABS: HEMATOCRIT 24.3 % (42.0-52.0); HEMOGLOBIN 8.1 g/dl (14.0-17.9); MEAN CORPUSCULAR HEMOGLOBIN 27.9 PG (27.0-31.0); MEAN CORPUSCULAR HGB CONC 33.5 g/dL (33.0-36.5); MEAN CORPUSCULAR VOLUME 83.5 FL (78-98); PLATELET COUNT 84 X10'3 (140-440); RED BLOOD COUNT 2.91 X10'6 (4.70-6.10); RED CELL DISTRIBUTION WIDTH 15.7 % (11.5-14.5); WHITE BLOOD COUNT 18.8 X10'3 (4.5-11.0)
[2020-02-11] MEDS: sodium chloride 0.45% 1,000 ML IV SCH (14:19)
--- NOTE | 2020-02-11 18:27 | NUR ---
Patient in room ICU 2043. I have received report from TRANG Ortega and had the opportunity to ask questions and assume patient care.
--- NOTE | 2020-02-11 18:38 | NUR ---
Problems reprioritized. Patient report given, questions answered & plan of care reviewed with Danitza COSTELLO.
--- NOTE | 2020-02-11 19:45 | NUR ---
Patient ambulated one length of the hallway from his room to the main entry door of ICU. Patient had stand by assistance, gait belt in place. Sternal precautions maintained. Patient with transport monitor in place during activity. Patient with increased respiratory rate, denies any shortness of breath or dizziness. Patient ambulated back to room and sat in bedside chair.
[2020-02-12] VITALS (25 sets, daily range): BP systolic 91–129; BP diastolic 47–68
[2020-02-12] MEDS: Insulin Reg/NS 100units/100mL 100 ML IV SCH (00:10)
--- NOTE | 2020-02-12 01:30 | NUR ---
Patient assisted to bed side commode for possible bowel movement. Patient able to sit up, stand and sit on commode at bedside with assistance, sternal precautions in use. Patient relates "I passes alot of gas." no bowel movement at this time.
[2020-02-12 03:09] LABS: BASOPHILS % (AUTO) 0.1 % (0-1); EOSINOPHILS % (AUTO) 0 % (0-6); HEMATOCRIT 23.4 % (42.0-52.0); HEMOGLOBIN 7.8 g/dl (14.0-17.9); LYMPHOCYTES # (AUTO) 1.3 X10'3 (1.1-4.8); LYMPHOCYTES % (AUTO) 7.1 % (21-51); MEAN CORPUSCULAR HEMOGLOBIN 28.1 PG (27.0-31.0); MEAN CORPUSCULAR HGB CONC 33.4 g/dL (33.0-36.5); MONOCYTES # (AUTO) 1.1 X10'3 (0-0.9); NEUTROPHILS # (AUTO) 16.1 X10'3 (1.8-7.7); NEUTROPHILS % (AUTO) 86.8 % (42-75); PLATELET COUNT 94 X10'3 (140-440); RED BLOOD COUNT 2.78 X10'6 (4.70-6.10); RED CELL DISTRIBUTION WIDTH 15.7 % (11.5-14.5); WHITE BLOOD COUNT 18.6 X10'3 (4.5-11.0)
[2020-02-12 03:17] LABS: ALBUMIN 2.9 G/DL (3.4-5.0); ANION GAP 3 (8-16); BLOOD UREA NITROGEN 22 MG/DL (7-18); CALCIUM 8.1 MG/DL (8.5-10.1); CHLORIDE 107 MMOL/L (99-107); CREATININE 1.05 MG/DL (0.60-1.10); GLUCOSE 131 MG/DL (70-104); MAGNESIUM 2.5 MG/DL (1.5-2.4); PHOSPHORUS 2.7 MG/DL (2.3-4.5); POTASSIUM 4.3 MMOL/L (3.5-5.1); SODIUM 141 MMOL/L (135-145); TOTAL CARBON DIOXIDE 30.7 MMOL/L (24-32); eGFR 70 ML/MIN
[2020-02-12] MEDS: amiodarone/D5 360MG/200ML BAG 200 ML IV SCH ×4 (03:59→16:15)
--- NOTE | 2020-02-12 06:25 | NUR ---
Problems reprioritized. Patient report given, questions answered & plan of care reviewed with TRANG Felder.
--- NOTE | 2020-02-12 06:37 | NUR ---
Patient in room ICU 2043. I have received report from Danitza COSTELLO and had the opportunity to ask questions and assume patient care.
[2020-02-12] MEDS: furosemide 40mg/4ml inj IV SCH ×2 (07:35→21:34)
[2020-02-12] MEDS: aspirin 81mg tablet.DR PO SCH (07:35)
[2020-02-12] MEDS: sennosides/docusate sodium tablet PO SCH ×2 (07:35→19:34)
[2020-02-12] MEDS: tamsulosin 0.4mg capsule PO SCH (07:35)
[2020-02-12] MEDS: pantoprazole 40mg Tablet.DR PO SCH (07:35)
[2020-02-12] MEDS: metoprolol tartrate 12.5mg (1/2 tablet) PO SCH ×2 (07:36→19:34)
[2020-02-12] MEDS: insulin Lispro (HumaLOG) vial - multi-dose SQ SCH ×2 (08:40→14:02)
[2020-02-12] MEDS ORDERED: amiodarone 150mg/dext, iso-os 100 ML IV ONE ×2 (10:00→11:15)
[2020-02-12] MEDS ORDERED: amiodarone/D5 360MG/200ML BAG 200 ML IV SCH (11:15)
--- NOTE | 2020-02-12 12:45 | NUR ---
Patient's macedo catheter was leaking very badly and he was constantly wet. Pt is post op day 3, so removed per protocol. He tolerated it well.
[2020-02-12] MEDS: insulin glargine (Lantus) pen - multi-dose SQ SCH (12:58)
[2020-02-12] MEDS: HYDROcodone/acetaminophen 10/325mg tab PO PRN (17:22)
--- NOTE | 2020-02-12 18:20 | NUR ---
Patient in room ICU 2043. I have received report from Emerita COSTELLO and had the opportunity to ask questions and assume patient care.
--- NOTE | 2020-02-12 18:46 | NUR ---
Problems reprioritized. Patient report given, questions answered & plan of care reviewed with Moody COSTELLO.
[2020-02-13] VITALS (24 sets, daily range): BP systolic 87–115; BP diastolic 47–119
[2020-02-13] MEDS: amiodarone/D5 360MG/200ML BAG 200 ML IV SCH ×5 (00:06→22:20)
[2020-02-13] MEDS: HYDROcodone/acetaminophen 10/325mg tab PO PRN ×3 (02:17→19:59)
[2020-02-13 03:02] LABS: BASOPHILS % (AUTO) 0.1 % (0-1); EOSINOPHILS # (AUTO) 0.1 X10'3 (0-0.9); EOSINOPHILS % (AUTO) 0.8 % (0-6); HEMATOCRIT 24.7 % (42.0-52.0); HEMOGLOBIN 8.2 g/dl (14.0-17.9); LYMPHOCYTES # (AUTO) 2.9 X10'3 (1.1-4.8); LYMPHOCYTES % (AUTO) 18.4 % (21-51); MEAN CORPUSCULAR HGB CONC 33.2 g/dL (33.0-36.5); MEAN CORPUSCULAR VOLUME 84.5 FL (78-98); MEAN PLATELET VOLUME 7.8 FL (7.4-10.4); MONOCYTES # (AUTO) 1.1 X10'3 (0-0.9); MONOCYTES % (AUTO) 6.9 % (2-12); NEUTROPHILS # (AUTO) 11.7 X10'3 (1.8-7.7); NEUTROPHILS % (AUTO) 73.8 % (42-75); PLATELET COUNT 149 X10'3 (140-440); RED BLOOD COUNT 2.93 X10'6 (4.70-6.10); RED CELL DISTRIBUTION WIDTH 15.7 % (11.5-14.5); WHITE BLOOD COUNT 15.8 X10'3 (4.5-11.0)
[2020-02-13 03:19] LABS: ALBUMIN 2.9 G/DL (3.4-5.0); ANION GAP 6 (8-16); BLOOD UREA NITROGEN 22 MG/DL (7-18); BUN/CREATININE RATIO 21.6 (5.4-32.0); CHLORIDE 107 MMOL/L (99-107); CREATININE 1.02 MG/DL (0.60-1.10); GLUCOSE 94 MG/DL (70-104); MAGNESIUM 2.2 MG/DL (1.5-2.4); PHOSPHORUS 2.7 MG/DL (2.3-4.5); POTASSIUM 3.7 MMOL/L (3.5-5.1); SODIUM 144 MMOL/L (135-145); TOTAL CARBON DIOXIDE 30.9 MMOL/L (24-32); eGFR 73 ML/MIN
[2020-02-13] MEDS: potassium Cl 20mEq/100mL bag 100 ML IV PRN ×5 (04:34→23:29)
--- NOTE | 2020-02-13 06:15 | NUR ---
Problems reprioritized. Patient report given, questions answered & plan of care reviewed with Rachell COSTELLO.
[2020-02-13] MEDS: tamsulosin 0.4mg capsule PO SCH (08:26)
[2020-02-13] MEDS: furosemide 40mg/4ml inj IV SCH ×2 (08:27→19:20)
[2020-02-13] MEDS: metoprolol tartrate 12.5mg (1/2 tablet) PO SCH ×2 (08:27→19:58)
[2020-02-13] MEDS: sennosides/docusate sodium tablet PO SCH ×2 (08:27→19:58)
[2020-02-13] MEDS: pantoprazole 40mg Tablet.DR PO SCH (08:27)
[2020-02-13] MEDS: aspirin 81mg tablet.DR PO SCH (08:27)
[2020-02-13] MEDS: Insulin Reg/NS 100units/100mL 100 ML IV SCH (09:30)
[2020-02-13] MEDS: magnesium 2GM in 50ml NS 50 ML IV PRN (09:48)
[2020-02-13] MEDS ORDERED: morphine 4 MG/ML inj SYRINge ONE (10:20)
[2020-02-13] MEDS ORDERED: midazolam 2 mg/2 ml injection ONE (10:21)
[2020-02-13] MEDS: insulin glargine (Lantus) pen - multi-dose SQ SCH (11:00)
--- NOTE | 2020-02-13 11:08 | NUR ---
Dr. Proctor at bedside, requesting to do a bedside cardoversion. Patient is in a-fib/rate controlled and he is asymptomatic but discussion was held yesterday to cardiovert if still in a-fib today. Pt. was given 2mg of versed and 2 mg of Morphine, cardoversion performed and successful at 120 jouls. Patient is now in sinus rhythm. Pt. tolerated well. He has been on edge of bed and offers no complaints. PT to come back later as he is a bit drowsy. Pt. remains in stable condition. Will continue to monitor.
[2020-02-13] MEDS: sodium chloride 0.45% 1,000 ML IV SCH (11:57)
--- NOTE | 2020-02-13 14:47 | NUR ---
Patient has been educated regarding use of I.S. and flutter valve; Pt. has been compliant thus far. PT to ambulate patient shortly.
--- NOTE | 2020-02-13 17:47 | NUR ---
Patient was titrated to RA since he only wears oxygen at HS. Patient is sating 92% on RA in no signs of distress. Patient sitting in chair awaiting dinner. Patient would like to stay in his chair until after dinner. Will continue to monitor.
--- NOTE | 2020-02-13 18:13 | NUR ---
Problems reprioritized. Patient report given, questions answered & plan of care reviewed with Mayra COSTELLO. Pt. sitting up in chair eating dinner, Sp02 92% on RA. HR 86 and in NSR. Pt. offers no complaints.
[2020-02-13 19:40] LABS: PHOSPHORUS 3.2 MG/DL (2.3-4.5); POTASSIUM 3.5 MMOL/L (3.5-5.1)
[2020-02-13] MEDS ORDERED: amiodarone 200mg tablet PO SCH (20:00)
[2020-02-14] VITALS (24 sets, daily range): BP systolic 95–127; BP diastolic 40–68
[2020-02-14] MEDS: HYDROcodone/acetaminophen 10/325mg tab PO PRN ×2 (02:21→10:20)
[2020-02-14 03:16] LABS: ALBUMIN 2.8 G/DL (3.4-5.0); ANION GAP 5 (8-16); BLOOD UREA NITROGEN 20 MG/DL (7-18); BUN/CREATININE RATIO 18.3 (5.4-32.0); CALCIUM 8.1 MG/DL (8.5-10.1); CHLORIDE 105 MMOL/L (99-107); CREATININE 1.09 MG/DL (0.60-1.10); GLUCOSE 102 MG/DL (70-104); PHOSPHORUS 3.7 MG/DL (2.3-4.5); POTASSIUM 4.3 MMOL/L (3.5-5.1); SODIUM 140 MMOL/L (135-145); TOTAL CARBON DIOXIDE 30.2 MMOL/L (24-32); eGFR 67 ML/MIN
[2020-02-14] MEDS: amiodarone/D5 360MG/200ML BAG 200 ML IV SCH (04:24)
[2020-02-14 04:36] LABS: BASOPHILS % (AUTO) 0.1 % (0-1); EOSINOPHILS # (AUTO) 0.3 X10'3 (0-0.9); EOSINOPHILS % (AUTO) 2.9 % (0-6); HEMATOCRIT 26.5 % (42.0-52.0); HEMOGLOBIN 8.6 g/dl (14.0-17.9); LYMPHOCYTES # (AUTO) 2.5 X10'3 (1.1-4.8); LYMPHOCYTES % (AUTO) 21.1 % (21-51); MEAN CORPUSCULAR HEMOGLOBIN 27.9 PG (27.0-31.0); MEAN CORPUSCULAR HGB CONC 32.5 g/dL (33.0-36.5); MEAN CORPUSCULAR VOLUME 85.7 FL (78-98); MEAN PLATELET VOLUME 7.2 FL (7.4-10.4); MONOCYTES % (AUTO) 8.6 % (2-12); NEUTROPHILS # (AUTO) 7.9 X10'3 (1.8-7.7); NEUTROPHILS % (AUTO) 67.3 % (42-75); PLATELET COUNT 208 X10'3 (140-440); RED BLOOD COUNT 3.09 X10'6 (4.70-6.10); RED CELL DISTRIBUTION WIDTH 15.7 % (11.5-14.5); WHITE BLOOD COUNT 11.7 X10'3 (4.5-11.0)
[2020-02-14] MEDS: potassium Cl 20mEq/100mL bag 100 ML IV PRN ×2 (05:16→06:50)
--- NOTE | 2020-02-14 06:34 | NUR ---
Problems reprioritized. Patient report given, questions answered & plan of care reviewed with Art RN.
[2020-02-14] MEDS: tamsulosin 0.4mg capsule PO SCH (07:29)
[2020-02-14] MEDS: amiodarone 200mg tablet PO SCH (07:29)
[2020-02-14] MEDS: sennosides/docusate sodium tablet PO SCH ×2 (07:29→20:45)
[2020-02-14] MEDS: aspirin 81mg tablet.DR PO SCH (07:29)
[2020-02-14] MEDS: pantoprazole 40mg Tablet.DR PO SCH (07:30)
[2020-02-14] MEDS: metoprolol tartrate 12.5mg (1/2 tablet) PO SCH ×2 (07:30→20:46)
[2020-02-14] MEDS ORDERED: acetaminophen 325mg tablet PO PRN (12:25)
[2020-02-15] VITALS (9 sets, daily range): BP systolic 98–120; BP diastolic 48–60
[2020-02-15 03:25] LABS: BASOPHILS % (AUTO) 0.1 % (0-1); EOSINOPHILS # (AUTO) 0.3 X10'3 (0-0.9); EOSINOPHILS % (AUTO) 3.1 % (0-6); HEMATOCRIT 26.1 % (42.0-52.0); HEMOGLOBIN 8.7 g/dl (14.0-17.9); LYMPHOCYTES # (AUTO) 2.1 X10'3 (1.1-4.8); LYMPHOCYTES % (AUTO) 20.4 % (21-51); MEAN CORPUSCULAR HEMOGLOBIN 28.1 PG (27.0-31.0); MEAN CORPUSCULAR HGB CONC 33.2 g/dL (33.0-36.5); MEAN CORPUSCULAR VOLUME 84.6 FL (78-98); MEAN PLATELET VOLUME 6.7 FL (7.4-10.4); MONOCYTES # (AUTO) 0.9 X10'3 (0-0.9); MONOCYTES % (AUTO) 8.5 % (2-12); NEUTROPHILS # (AUTO) 7.1 X10'3 (1.8-7.7); NEUTROPHILS % (AUTO) 67.9 % (42-75); PLATELET COUNT 247 X10'3 (140-440); RED BLOOD COUNT 3.08 X10'6 (4.70-6.10); RED CELL DISTRIBUTION WIDTH 15.6 % (11.5-14.5); WHITE BLOOD COUNT 10.4 X10'3 (4.5-11.0)
[2020-02-15 03:29] LABS: MAGNESIUM 2.2 MG/DL (1.5-2.4); PHOSPHORUS 4.4 MG/DL (2.3-4.5); POTASSIUM 4.3 MMOL/L (3.5-5.1)
--- NOTE | 2020-02-15 06:20 | NUR ---
Problems reprioritized. Patient report given, questions answered & plan of care reviewed with Jimbo COSTELLO.
[2020-02-15] MEDS: pantoprazole 40mg Tablet.DR PO SCH (07:26)
[2020-02-15] MEDS: tamsulosin 0.4mg capsule PO SCH (07:26)
[2020-02-15] MEDS: amiodarone 200mg tablet PO SCH (07:26)
[2020-02-15] MEDS: sennosides/docusate sodium tablet PO SCH (07:26)
[2020-02-15] MEDS: aspirin 81mg tablet.DR PO SCH (07:26)
[2020-02-15] MEDS: metoprolol tartrate 12.5mg (1/2 tablet) PO SCH (07:27)
[2020-02-15] MEDS ORDERED: METO25TA6 PO (08:44)
[2020-02-15] MEDS ORDERED: AMIO200T61 PO (08:44)
[2020-02-15] MEDS ORDERED: HYDR-4353 PO (08:44)
--- NOTE | 2020-02-15 10:29 | NUR ---
Pt stable for discharge per MD orders, all discharge paperwork reviewed and understood by patient. Follow up appt with Dr Proctor in the next week or two. Pt wheeled to the front door of the lobby and discharged to spouse via private vehicle.
--- NOTE | 2020-02-17 14:47 | NUR ---
Case Management DC follow up: spoke to pt via telephone. S/P: aortic valve replacement r/t stenosis Reports: "doing pretty good, sore, tired, getting stronger everyday". Compliant w/after care instructions. Struggles a little bit getting out of bed r/t sternal precautions, but fine once " feet hit the floor". Denies: acute/worsening cp, SOB, resp distress, vertigo, syncope,weakness, blurry vision, N/V, MCKEON, emergent general pain, abd tenderness/distension, fever. Denies s/s infection to surge site. Verbalizes understanding of s/s that warrant -/ER visit for evaluation. Verbalizes understanding of new Rx and why prescribed: Amiodarone, Lyons, Metoprolol. Went over orthostatic hypotension as a precaution, pt verbalizes understanding. resumes current Rx/taking as ordered, no ase r/t polypharmacy. Acknowledges need to schedule/keep follow up appts w/PCP/[facility], [place] 02/29/20, Restaurant Delivery Driver/Heather first week in March. Needs met, questions answered at DC, no further questions at this time.
== END 2020-02-15 10:15 | disposition home or self-care (01) | DRG 219 ==
LOC: PAS IN 05:16 → EDSTATUS 07:30 → ICU 2S 10:27
PROVIDERS: ADMIT Thoracic Surgery (Cardiothoracic Vascular Surgery); ATTEND Thoracic Surgery (Cardiothoracic Vascular Surgery)
PROC: 0WJC0ZZ Inspection of Mediastinum, Open Approach (ICD-10-PCS; 2020-02-09)
PROC: 02RX0JZ Replacement of Thoracic Aorta, Ascending/Arch with Synthetic Substitute, Open Approach (ICD-10-PCS; 2020-02-09)
PROC: 5A1221Z Performance of Cardiac Output, Continuous (ICD-10-PCS; 2020-02-09)
PROC: 0WCC0ZZ Extirpation of Matter from Mediastinum, Open Approach (ICD-10-PCS; 2020-02-09)
PROC: 02RF08Z Replacement of Aortic Valve with Zooplastic Tissue, Open Approach (ICD-10-PCS; principal; 2020-02-09 09:32)
PROC: 5A2204Z Restoration of Cardiac Rhythm, Single (ICD-10-PCS; 2020-02-13)
DX: I35.0 Nonrheumatic aortic (valve) stenosis (principal); N17.0 Acute kidney failure with tubular necrosis; I50.32 Chronic diastolic (congestive) heart failure; R04.89 Hemorrhage from other sites in respiratory passages; I77.89 Other specified disorders of arteries and arterioles
CPT/HCPCS: 0232T; 93312; 93325; 36415; 36430; 36600; 71045; 71046; 80048; 80053; 81003; 82330; 82435; 82803; 82947; 82948; 83036; 83735; 84100; 84132; 84295; 85018; 85025; 85027; 85347; 85384; 85610; 85730; 86885; 86900; 86901; 86920; 87070; 87081; 88300; 88304; 93005; 93880; 93922; 93970; 94002; 94010; 94640; 94668; 94760; 97110; 97116; 97161; 97530; A4618; A6258; A6402; A6449; A7000; A7048; C1713; C1751; C9132; C9250; C9520; G0378; J0690; J1644; J1815; J1940; J2001; J2060; J2150; J2250; J2270; J2597; J2704; J2710; J2720; J2930; J3010; J3370; J3475; J3480; J3490; J7030; J7040; J7050; J7060; J7120; L8670; P9012; P9016; P9035; P9045; P9047

== ENCOUNTER 2023-03-02 08:49 | Emergency (ER) | payer MEDICARE ==
[~2023-03-02] VITALS: Ht 172.7 cm; Wt 95.5 kg
[~2023-03-02 08:49] MED LIST changes: +AMI200T PO; +HYDR-4353 PO; -Insulin Reg/NS 100units/100mL 100 ML IV SCH; -LISI-604 PO; +LOP25T PO; -MESSAGE TO PHARMACY PO ONE; -albuterol 2.5 MG/3 ML nebule NEB PRN; -ceFAZolin 1000mg inj ONE; -dextrose 50%-water 50ml dispensing syringe IV PRN; -dextrose ORAL solution 15 GM/59 ML bottle PO PRN; -glucagon, human recombinant 1mg kit SUBCUT PRN; -insulin Lispro (HumaLOG) vial - multi-dose SQ SCH; -insulin glargine (Lantus) pen - multi-dose SQ SCH; -ringers solution, lacted 1,000 ML IV SCH
[2023-03-02] MEDS ORDERED: LIDOcaine 1% 30ml preserv. free vial IJ ONE (09:55)
[2023-03-02] MEDS ORDERED: LIDOcaine 1% W/epiNEPHrine 1:100,000 20ml vial SQ ONE (10:25)
[2023-03-02] MEDS ORDERED: LIDOcaine 1% (10mg/ml)w/preservative inj. 20ml MDV SQ ONE (10:25)
[2023-03-02] MEDS ORDERED: CEPH250T PO (10:41)
--- NOTE | 2023-03-02 11:12 | NUR ---
wound irrigated with NS x200cc, dressed with iodoform, sterile guaze and coban.
[2023-03-02 11:31] VITALS: BP 144/74
== END 2023-03-02 11:32 | disposition home or self-care (01) ==
LOC: ER 08:49
DX: L02.511 Cutaneous abscess of right hand (principal); Z88.8 Allergy status to other drugs, medicaments and biological substances
CPT/HCPCS: 26010; 73140; 99283; A6266; J3490